=== PATIENT | male | born 1960 | race Caucasian/White ===

== ENCOUNTER 2017-05-26 12:43 | Emergency (ER) | payer OTHER ==
[~2017-05-26] VITALS: Ht 167.6 cm; Wt 63.0 kg
[2017-05-26 13:27] VITALS: BP 153/84
[2017-05-26] MEDS ORDERED: AMLO10TA2 PO (13:34)
--- NOTE | 2017-05-26 14:48 | PHYS DOC ---
Past Medical History Past Medical History: Anxiety, Arthritis, Hypertension Past Surgical History: Other Additional Past Surgical Histo: UNKNOWN Alcohol Use: None Drug Use: None Adult General Chief Complaint Chief Complaint: MEDICATION REFILL [facility] HPI Patient is a 56 year old male who presents for a medication refill. The patient has been incarcerated for the past few months and has run out of medication refills. His primary care provider is no longer seeing him. He takes amlodipine 10 mg 1 daily. He also needs a referral for a new primary care provider. Review of Systems Review of Systems Constitutional: Denies fever or chills [] Cardiovascular: No additional information not addressed in HPI [] Neurologic: Denies headache, focal weakness or sensory changes [] Endocrine: Denies polyuria or polydipsia [] Allergies Allergies Allergies Coded Allergies Type Severity Reaction Last Updated Verified No Known Drug Allergies 05/26/17 No Physical Exam Physical Exam Constitutional: Well developed, well nourished, no acute distress, non-toxic appearance. [] Cardiovascular:Heart rate regular rhythm, no murmur [] Lungs & Thorax: Bilateral breath sounds clear to auscultation [] Neurologic: Alert and oriented X 3, normal motor function, normal sensory function, no focal deficits noted. [] Psychologic: Affect normal, judgement normal, mood normal. [] Current Patient Data Vital Signs Vital Signs Date Time Temp Pulse Resp B/P (MAP) Pulse Ox O2 Delivery O2 Flow Rate FiO2 05/26/17 13:27 98.6 89 18 96 Room Air 98.6 EKG EKG [] Radiology/Procedures Radiology/Procedures [] Course & Med Decision Making Course & Med Decision Making Pertinent Labs and Imaging studies reviewed. (See chart for details) []1. Medication refill The patient has been given a clinic list so that he can establish care with another primary care provider. I did refill his amlodipine 10 mg 1 by mouth daily. He is to take this medication as directed. Please return to the ED if worsening. Jaydenon Disclaimer Rekha Disclaimer This electronic medical record was generated, in whole or in part, using a voice recognition dictation system. Departure Departure Impression: Primary Impression: Medication refill Disposition: HOME, SELF-CARE Condition: STABLE Patient Instructions: Medication Refill, Emergency Department Additional Instructions: You have been given a clinic list to receive care from a new provider. Please call [facility] to establish care. Please take the medication as prescribed. Scripts Amlodipine Besylate (AMLODIPINE BESYLATE) 10 Mg Tablet 10 MG PO DAILY, #30 TAB Prov: RUDDY FORD APRN 05/26/17 RUDDY FORD APRN May 26, 2017 14:48
== END 2017-05-26 13:46 | disposition home or self-care (01) ==
LOC: ER 12:58
DX: Z76.0 Encounter for issue of repeat prescription (principal); F41.9 Anxiety disorder, unspecified; I10 Essential (primary) hypertension; M19.90 Unspecified osteoarthritis, unspecified site
CPT/HCPCS: 99283

== ENCOUNTER 2017-06-12 11:40 | Emergency (ER) | payer OTHER ==
[~2017-06-12] VITALS: Ht 167.6 cm; Wt 65.8 kg
[~2017-06-12 11:40] MED LIST: AMLO10TA2 PO
--- NOTE | 2017-06-12 12:00 | PHYS DOC ---
Past Medical History Past Medical History: Anxiety, Arthritis, Hypertension Past Surgical History: Other Additional Past Surgical Histo: UNKNOWN Alcohol Use: None Drug Use: None Adult General Chief Complaint Chief Complaint: SLURRED SPEECH HPI HPI Patient is a 56 year old male presenting to the emergency department for evaluation of slurred speech and gait changes started approximate 4:00 this morning. 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 Patient said that his gait was unsteady and he tripped and fell backwards striking his head and he thinks that this is when his slurred speech started at 4:00 this morning although he isn't definitely sure that this wasn't going on before. He was incarcerated for approximately 3 months and it 3 weeks ago and he has been staying in a drug treatment center since that time. 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 Patient is denying any pain to me including head neck chest abdomen or extremities. He says that he has chronic pain. Of note he says that he has increased his dose of Seroquel after being released from [facility] and he feels that he is off since then. He is taking 200 mg daily of Seroquel. Review of Systems Review of Systems Constitutional: Denies fever or chills [] Eyes: Denies change in visual acuity, redness, or eye pain [] HENT: Denies nasal congestion or sore throat [] Respiratory: Denies cough or shortness of breath [] Cardiovascular: No additional information not addressed in HPI [] GI: Denies abdominal pain, nausea, vomiting, bloody stools or diarrhea [] : Denies dysuria or hematuria [] Musculoskeletal: + chronic low back pain. No joint pain [] Integument: Denies rash or skin lesions [] Neurologic: Denies headache. + focal weakness. No sensory changes [] Current Medications Current Medications Current Medications Medications (Trade) Dose Ordered Sig/Timothy Start Time Stop Time Status Last Admin Dose Admin Sodium Chloride 1,000 ml @ 1,000 mls/hr 1X ONCE 06/12/17 12:15 06/12/17 13:14 DC 06/12/17 12:35 1,000 MLS/HR Allergies Allergies Allergies Coded Allergies Type Severity Reaction Last Updated Verified No Known Drug Allergies 05/26/17 No Physical Exam Physical Exam Constitutional: Well developed, well nourished, no acute distress, non-toxic appearance. [] HENT: Normocephalic, + occipital hematoma, bilateral external ears normal, oropharynx moist, no oral exudates, nose normal. [] Eyes: PERRLA, EOMI, conjunctiva normal, no discharge. [] Neck: Normal range of motion, no tenderness, supple, no stridor. [] Cardiovascular:Heart rate regular rhythm, no murmur [] Lungs & Thorax: Bilateral breath sounds clear to auscultation [] Abdomen: Bowel sounds normal, soft, no tenderness, no masses, no pulsatile masses. [] Skin: Warm, dry, no erythema, no rash. [] Back: No tenderness, no CVA tenderness. [] Extremities: No tenderness, no cyanosis, no clubbing, ROM intact, no edema. [] Neurologic: Alert and oriented X 3, patient with left arm drift and decreased pr specialist strength on left side. He had some right leg drift as well in addition to slurred speech but his cranial nerve function is otherwise normal. Current Patient Data Vital Signs Vital Signs Date Time Temp Pulse Resp B/P (MAP) Pulse Ox O2 Delivery O2 Flow Rate FiO2 06/12/17 12:33 75 18 120/61 (80) 95 Room Air 06/12/17 11:41 97.6 97.6 Lab Values Laboratory Tests Test 06/12/17 11:52 06/12/17 12:50 White Blood Count 6.3 x10^3/uL (4.0-11.0) Red Blood Count 4.64 x10^6/uL (4.30-5.70) Hemoglobin 14.8 g/dL (13.0-17.5) Hematocrit 43.7 % (39.0-53.0) Mean Corpuscular Volume 94 fL (79-100) Mean Corpuscular Hemoglobin 32 pg (25-35) Mean Corpuscular Hemoglobin Concent 34 g/dL (31-37) Red Cell Distribution Width 14.3 % (11.5-14.5) Platelet Count 179 x10^3/uL (140-400) Neutrophils (%) (Auto) 58 % (31-73) Lymphocytes (%) (Auto) 22 % (24-48) L Monocytes (%) (Auto) 12 % (0-9) H Eosinophils (%) (Auto) 6 % (0-3) H Basophils (%) (Auto) 1 % (0-3) Neutrophils # (Auto) 3.7 x10^3uL (1.8-7.7) Lymphocytes # (Auto) 1.4 x10^3/uL (1.0-4.8) Monocytes # (Auto) 0.8 x10^3/uL (0.0-1.1) Eosinophils # (Auto) 0.4 x10^3/uL (0.0-0.7) Basophils # (Auto) 0.1 x10^3/uL (0.0-0.2) Prothrombin Time 12.9 SEC (11.7-14.0) Prothrombin Time INR 1.0 (0.8-1.1) PTT 35 SEC (24-38) Sodium Level 142 mmol/L (136-145) Potassium Level 4.0 mmol/L (3.5-5.1) Chloride Level 108 mmol/L (98-107) H Carbon Dioxide Level 29 mmol/L (21-32) Anion Gap 5 (6-14) L Blood Urea Nitrogen 21 mg/dL (8-26) Creatinine 0.6 mg/dL (0.7-1.3) L Estimated GFR (Cockcroft-Gault) 138.9 BUN/Creatinine Ratio 35 (6-20) H Glucose Level 114 mg/dL (70-99) H Calcium Level 9.6 mg/dL (8.5-10.1) Magnesium Level 1.9 mg/dL (1.8-2.4) Total Bilirubin 0.3 mg/dL (0.2-1.0) Aspartate Amino Transferase (AST) 81 U/L (15-37) H Alanine Aminotransferase (ALT) 99 U/L (16-63) H Alkaline Phosphatase 115 U/L (46-116) Creatine Kinase 74 U/L (39-308) Troponin I Quantitative < 0.017 ng/mL (0.000-0.055) AF-Djk-W-Type Natriuretic Peptide 38 pg/mL (0-124) Total Protein 7.0 g/dL (6.4-8.2) Albumin 3.0 g/dL (3.4-5.0) L Albumin/Globulin Ratio 0.8 (1.0-1.7) L Lipase 172 U/L (73-393) Thyroid Stimulating Hormone (TSH) 1.183 uIU/mL (0.358-3.74) Ethyl Alcohol Level < 10 mg/dL (0-10) Urine Collection Type Unknown Urine Color Yellow Urine Clarity Clear Urine pH 6.0 Urine Specific Ellinger 1.010 Urine Protein Negative mg/dL (NEG-TRACE) Urine Glucose (UA) Negative mg/dL (NEG) Urine Ketones (Stick) Negative mg/dL (NEG) Urine Blood Negative (NEG) Urine Nitrite Negative (NEG) Urine Bilirubin Negative (NEG) Urine Urobilinogen Dipstick 0.2 mg/dL (0.2 mg/dL) Urine Leukocyte Esterase Negative (NEG) Urine RBC 0 /HPF (0-2) Urine WBC 0 /HPF (0-4) Urine Squamous Epithelial Cells Occ /LPF Urine Bacteria 0 /HPF (0-FEW) Urine Opiates Screen Neg (NEG) Urine Methadone Screen Neg (NEG) Urine Barbiturates Neg (NEG) Urine Phencyclidine Screen Neg (NEG) Urine Amphetamine/Methamphetamine Neg (NEG) Urine Benzodiazepines Screen Pos (NEG) Urine Cocaine Screen Neg (NEG) Urine Cannabinoids Screen Neg (NEG) Urine Ethyl Alcohol Neg (NEG) Laboratory Tests 06/12/17 11:52 Laboratory Tests 06/12/17 11:52 EKG EKG Sinus rhythm at 76 bpm with normal axis no obvious ST elevation or depression and normal T waves. Radiology/Procedures Radiology/Procedures CT head Indication: Fall, head trauma, previous stroke, slurred speech Technique: CT head without IV contrast Comparison: None Findings: No pathologic extra-axial or intra-axial fluid collections. Wedge-shaped low-attenuation is seen in the right frontotemporal lobe extending to the right lateral ventricle with associated ventricular dilation compatible with previous history of stroke. The basal cisterns are within normal limits. No acute intracranial bleed. No midline shift or mass effect. Orbits are within normal limits. No calvarial lesions. The paranasal sinuses and mastoid air cells are clear. Impression: 1. No acute intracranial process on this noncontrast CT. If concern for acute ischemic stroke is high, please consider MRI brain. 2. Evidence of previous stroke involving the frontotemporal lobe PQRS Compliance Statement: One or more of the following individualized dose reduction techniques were utilized for this examination: 1. Automated exposure control 2. Adjustment of the mA and/or kV according to patient size 3. Use of iterative reconstruction technique DICTATED and SIGNED BY: WOLF MAR DO DATE: 06/12/17 1249 Course & Med Decision Making Course & Med Decision Making Patient takes a baby aspirin daily and has had a CVA. He is having slurred speech and altered gait is something new starting this morning. He is obviously out of the TPA window. Patient has an NIH stroke scale of 4 on my assessment and the nurses assessment. I strongly recommended admission for further evaluation and treatment including MRI and carotid Doppler and neurology consultation. Patient refused stating that he feels that he is basically at his baseline and that he has things to do and wants to go home. He says that he is taking a baby aspirin daily so recommended that he continue doing this. I told him that he could have new or worsening deficits in that he is risking or disability by not being admitted to the hospital. Patient verbalized understanding and is willing to take this risk on his own. He is convinced this is a Seroquel's I told him he could try having his dose from 200-100 mg and that he will need to follow with a primary care provider in 2-3 days and come back to the ED sooner with worsening pain weakness or other general concerns. Patient aware and agreeable with the above plan and verbalized understanding. Dragon Disclaimer Dragon Disclaimer This electronic medical record was generated, in whole or in part, using a voice recognition dictation system. Departure Departure Impression: Primary Impression: Slurred speech Additional Impressions: Left arm weakness Altered gait Disposition: 01 HOME, SELF-CARE Condition: STABLE Referrals: ABELINO MILES MD Patient Instructions: Stroke Prevention Additional Instructions: KEEP TAKING YOUR BABY ASPIRIN DAILY. TAKE 100MG OF YOUR SEROQUEL DAILY. FOLLOW WITH A PRIMARY CARE PROVIDER IN 2-3 DAYS AND COME BACK TO THE ED WITH WORSENING WEAKNESS, OR OTHER GENERAL CONCERNS. THANK YOU! Problem Qualifiers KYLE FRANK DO Jun 12, 2017 12:00
[2017-06-12 12:22] LABS: BASO # 0.1 x10^3/uL (0.0-0.2); BASO % 1 % (0-3); EOS % 6 % (0-3); HEMATOCRIT 43.7 % (39.0-53.0); HEMOGLOBIN 14.8 g/dL (13.0-17.5); LYMPH # 1.4 x10^3/uL (1.0-4.8); LYMPH % 22 % (24-48); MEAN CORPUSCULAR HEMOGLOBIN 32 pg (25-35); MEAN CORPUSCULAR HGB CONC 34 g/dL (31-37); MEAN CORPUSCULAR VOLUME 94 fL (79-100); MONO % 12 % (0-9); NEUT % 58 % (31-73); PLATELET COUNT 179 x10^3/uL (140-400); RED BLOOD COUNT 4.64 x10^6/uL (4.30-5.70); RED CELL DISTRIBUTION WIDTH 14.3 % (11.5-14.5); WHITE BLOOD COUNT 6.3 x10^3/uL (4.0-11.0)
[2017-06-12] MEDS: IV NORMAL SALINE 1000ML BAG 1,000 ML IV ONE (12:35)
[2017-06-12 12:38] LABS: CALCIUM 9.6 mg/dL (8.5-10.1); CREATININE 0.6 mg/dL (0.7-1.3); GFR 138.9
--- NOTE | 2017-06-12 12:42 | EKG ---
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
[2017-06-12 12:44] LABS: ALBUMIN/GLOBULIN RATIO 0.8 (1.0-1.7); MAGNESIUM 1.9 mg/dL (1.8-2.4); PROTHROMBIN TIME PATIENT 12.9 SEC (11.7-14.0); TOTAL BILIRUBIN 0.3 mg/dL (0.2-1.0)
--- NOTE | 2017-06-12 12:54 | RAD ---
CT head Indication: Fall, head trauma, previous stroke, slurred speech Technique: CT head without IV contrast Comparison: None Findings: No pathologic extra-axial or intra-axial fluid collections. Wedge-shaped low-attenuation is seen in the right frontotemporal lobe extending to the right lateral ventricle with associated ventricular dilation compatible with previous history of stroke. The basal cisterns are within normal limits. No acute intracranial bleed. No midline shift or mass effect. Orbits are within normal limits. No calvarial lesions. The paranasal sinuses and mastoid air cells are clear. Impression: 1. No acute intracranial process on this noncontrast CT. If concern for acute ischemic stroke is high, please consider MRI brain. 2. Evidence of previous stroke involving the frontotemporal lobe PQRS Compliance Statement: One or more of the following individualized dose reduction techniques were utilized for this examination: 1. Automated exposure control 2. Adjustment of the mA and/or kV according to patient size 3. Use of iterative reconstruction technique
[2017-06-12 13:06] LABS: BARBITURATES NEG (NEG); BENZODIAZEPINES POS (NEG); CANNABINOIDS NEG (NEG); COCAINE NEG (NEG); METHADONE NEG (NEG); OPIATES NEG (NEG); PHENCYCLIDINE NEG (NEG)
[2017-06-12 13:10] LABS: BILIRUBIN,URINE NEGATIVE (NEG); GLUCOSE,URINE NEGATIVE (NEG); NITRITE,URINE NEGATIVE (NEG); PROTEIN,URINE NEGATIVE (NEG-TRACE); UROBILINOGEN,URINE 0.2 mg/dL (0.2 mg/dL)
[2017-06-12 13:31] VITALS: BP 128/72
[2017-06-12 13:32] LABS: BACTERIA,URINE 0 /HPF (0-FEW); RBC,URINE 0 /HPF (0-2); SQUAMOUS EPITHELIAL CELL,UR OCC /LPF; WBC,URINE 0 /HPF (0-4)
== END 2017-06-12 14:05 | disposition home or self-care (01) ==
LOC: ER 11:40
DX: R47.81 Slurred speech (principal); R53.1 Weakness; R26.9 Unspecified abnormalities of gait and mobility; I10 Essential (primary) hypertension; G89.29 Other chronic pain; S09.90XA Unspecified injury of head, initial encounter; M19.90 Unspecified osteoarthritis, unspecified site; Z86.73 Personal history of transient ischemic attack (TIA), and cerebral infarction without residual deficits; Z79.82 Long term (current) use of aspirin; W01.0XXA Fall on same level from slipping, tripping and stumbling without subsequent striking against object, initial encounter; Y93.89 Activity, other specified; Y99.8 Other external cause status; Y92.89 Other specified places as the place of occurrence of the external cause
CPT/HCPCS: 36415; 70450; 80053; 80307; 81001; 82550; 83690; 83735; 83880; 84443; 84484; 85025; 85610; 85730; 93005; 96360; 99285; G0480; J7030; G0479

== ENCOUNTER → 2019-05-20 | Outpatient (CLI) | payer OTHER ==
[~2019-05-20] MED LIST changes: +ALBUTEROL SULFATE 2.5 MG/3 ML NEBU. NEB ONE; -AMLO10TA2 PO; +AMLO10TA8 PO
== END | disposition home or self-care (01) ==
LOC: PF 09:57
PROVIDERS: ATTEND Surgery
DX: J44.9 Chronic obstructive pulmonary disease, unspecified (principal); F17.210 Nicotine dependence, cigarettes, uncomplicated
CPT/HCPCS: 94060; 94640; J7613